=== PATIENT | female | born 1995 | race Hispanic/Latino ===

== ENCOUNTER 2017-11-13 10:57 | Emergency (ER) | payer BC ==
--- NOTE | 2017-11-13 13:24 | RAD REPORT ---
EXAM DESCRIPTION: RAD - Foot Left 3 View - 11/13/2017 12:58 pm CLINICAL HISTORY: PAIN Swelling. COMPARISON: No comparisons FINDINGS: No fracture or dislocation seen. Small calcaneal spur.
[2017-11-13] MEDS ORDERED: LIDOCAINE 1% W/EPI 1:100,000 MDV 50 ML VIAL ONE (13:55)
--- NOTE | 2017-11-13 14:48 | ER ---
Nurse's Notes [facility] Name: Swetha Farr Age: 22 yrs Sex: Female : 1995 Arrival Date: 11/13/2017 Time: 11:01 Bed 10 Private MD: None, None Diagnosis: Pain in left foot Presentation: 11/13 11:26 Presenting complaint: Patient states: left foot swollen started Monday. Transition sv of care: patient was not received from another setting of care. Onset of symptoms was November 08, 2017. Care prior to arrival: None. 11:26 Method Of Arrival: Ambulatory sv 11:26 Acuity: SAQIB 4 sv 15:04 Risk Assessment: Do you want to hurt yourself or someone else? Patient reports no rv desire to harm self or others. Initial Sepsis Screen: Does the patient meet any 2 criteria? No. Patient's initial sepsis screen is negative. Does the patient have a suspected source of infection? No. Patient's initial sepsis screen is negative. Historical: - Allergies: 11:27 No Known Allergies; sv - Home Meds: 11:27 None [Active]; sv - PMHx: 11:27 High Cholesterol; sv - PSHx: 11:27 None; sv - Immunization history:: Adult Immunizations up to date. - Social history:: Smoking status: Patient uses tobacco products, denies chronic smoking, but will smoke occasionally. - Ebola Screening: : No symptoms or risks identified at this time. Screenin:23 Abuse screen: Denies threats or abuse. Nutritional screening: No deficits noted. aa5 Tuberculosis screening: No symptoms or risk factors identified. Fall Risk None identified. Assessment: 12:20 General: Appears comfortable, Behavior is calm, cooperative. Pain: Complains of pain in aa5 lateral side of left foot Pain does not radiate. Pain currently is 5 out of 10 on a pain scale. Quality of pain is described as tender, throbbing, Pain began approximately 5 days ago Is continuous, Aggravated by weight bearing. Neuro: Level of Consciousness is awake, alert, obeys commands, Oriented to person, place, time, situation. Cardiovascular: No deficits noted. Respiratory: Airway is patent Respiratory effort is even, unlabored, Respiratory pattern is regular, symmetrical. GI: No signs and/or symptoms were reported involving the gastrointestinal system. : No signs and/or symptoms were reported regarding the genitourinary system. EENT: No signs and/or symptoms were reported regarding the EENT system. Derm: Skin is pink, warm \\T\\ dry. Pt states "I have a red spot on the side of my foot and it's been there since Monday". No redness noted to left foot, small puncture wound noted to lateral aspect of left foot. Pt states "maybe I stepped on something and didn't notice". Musculoskeletal: Range of motion: intact in all extremities. Vital Signs: 11:28 BP 144 / 82; Pulse 82; Resp 18; Temp 98.2; Pulse Ox 98% ; Weight 104.33 kg; Height 5 sv ft. 3 in. (160.02 cm); 11:28 Body Mass Index 40.74 (104.33 kg, 160.02 cm) sv ED Course: 11:01 Patient arrived in ED. sb2 11:01 None, None is Private Physician. sb2 11:11 Annika Rincon, BRITNEY is Primary Nurse. jl7 11:11 Sherwin Carrillo PA is PHCP. cp 11:11 Jose L Miguel MD is Attending Physician. cp 11:11 Patient's name was called from ER lobby. No response. sv 11:27 Triage completed. sv 11:29 Arm band placed on right wrist. Patient placed in waiting room, Patient notified of sv wait time. 12:20 Patient has correct armband on for positive identification. Call light in reach. aa5 12:20 Patient placed in an exam room. aa5 12:21 Sherwin Carrillo PA is PHCP. cp 12:21 Jose L Miguel MD is Attending Physician. cp 12:55 X-ray completed. Portable x-ray completed in exam room. Patient tolerated procedure jb2 well. 12:57 XRAY Foot LEFT 3 View In Process Unspecified. EDMS 14:47 Gerald Spencer DPM is Referral Physician. cp 15:03 Assist provider with I \\T\\ D: of an abscess on left. Patient did not have IV access rv during this emergency room visit. Administered Medications: No medications were administered Outcome: 14:48 Discharge ordered by MD. cp 15:03 Discharged to home ambulatory. rv 15:03 Condition: improved 15:03 Discharge instructions given to patient, Instructed on discharge instructions, follow up and referral plans. medication usage, wound care. 15:05 Patient left the ED. rv Signatures: Dispatcher [employer] EDCeline Park, RN RN Gerald Anders2 Marissa Nam RN RN aa5 Sherwin Carrillo PA PA cp Leal, Jahala RN RN jl7 Afshan Cordero sb2 Sean Goetz RN RN rv Corrections: (The following items were deleted from the chart) 11:29 11:28 Pulse 82bpm; Resp 18bpm; Pulse Ox 98%; Temp 98.2F; 104.33 kg; Height 5 ft. 3 in.; sv BMI: 40.7; sv
--- NOTE | 2017-11-13 14:48 | EDPHYS ---
Physician Documentation [facility] Name: Swetha Farr Age: 22 yrs Sex: Female : 1995 Arrival Date: 11/13/2017 Time: 11:01 Bed 10 Private MD: None, None ED Physician Jose L Miguel HPI: 11/13 12:30 This 22 yrs old Female presents to ER via Ambulatory with complaints of foot cp pain. 12:30 The patient presents with pain, that is acute, swelling, tenderness. The complaints cp affect the left foot. Context: resulted from an unknown cause, the patient can fully bear weight, the patient is able to ambulate, with mild difficulty. Onset: The symptoms/episode began/occurred last week. 12:30 Associated signs and symptoms: Pertinent positives: swelling, Pertinent negatives: calf cp tenderness, fever, weakness. Severity of symptoms: in the emergency department the symptoms are unchanged, despite home interventions. Historical: - Allergies: 11:27 No Known Allergies; sv - Home Meds: 11:27 None [Active]; sv - PMHx: 11:27 High Cholesterol; sv - PSHx: 11:27 None; sv - Immunization history:: Adult Immunizations up to date. - Social history:: Smoking status: Patient uses tobacco products, denies chronic smoking, but will smoke occasionally. - Ebola Screening: : No symptoms or risks identified at this time. ROS: 12:35 Constitutional: Negative for fever. cp 12:35 Eyes: Negative for injury, pain, redness, and discharge. cp 12:35 ENT: Negative for ear pain, sore throat, difficulty swallowing, difficulty handling secretions. 12:35 Neck: Negative for pain with movement, pain at rest, stiffness. 12:35 Cardiovascular: Negative for chest pain, edema, palpitations. 12:35 Respiratory: Negative for cough, shortness of breath, wheezing. 12:35 Abdomen/GI: Negative for abdominal pain, nausea, vomiting, and diarrhea. 12:35 Back: Negative for pain at rest, pain with movement, radiated pain. 12:35 MS/extremity: Positive for pain, swelling, tenderness, of the lateral side of left foot, Negative for deformity, erythema, paresthesias. 12:35 Skin: Negative for cellulitis, rash. 12:35 Neuro: Negative for altered mental status, headache. 12:35 All other systems are negative. Exam: 12:42 Head/Face: Normocephalic, atraumatic. cp 12:42 Constitutional: The patient appears in no acute distress, alert, awake, non-toxic, well developed, well nourished. 12:42 Eyes: Periorbital structures: appear normal, Conjunctiva: normal, no exudate, no cp injection, Lids and lashes: appear normal, bilaterally. 12:42 ENT: External ear(s): are unremarkable, Nose: is normal, Mouth: is normal, Posterior pharynx: is normal, airway is patent, no erythema, no exudate, no pooling of secretions. 12:42 Chest/axilla: Inspection: normal, Palpation: is normal, no crepitus, no tenderness. 12:42 Cardiovascular: Rate: normal, Rhythm: regular. 12:42 Respiratory: the patient does not display signs of respiratory distress, Respirations: Breath sounds: are clear throughout. 12:42 Abdomen/GI: Exam negative for discomfort, distension, guarding, Inspection: abdomen appears normal. 12:42 Musculoskeletal/extremity: Extremities: grossly normal except: noted in the lateral side of left foot proximal to fifth toe: pain, tenderness, mild swelling, There is no evidence of Perfusion: the extremity is normally perfused throughout, Sensation intact. 12:42 Skin: cellulitis, is not appreciated, no rash present. Vital Signs: 11:28 BP 144 / 82; Pulse 82; Resp 18; Temp 98.2; Pulse Ox 98% ; Weight 104.33 kg; Height 5 sv ft. 3 in. (160.02 cm); 11:28 Body Mass Index 40.74 (104.33 kg, 160.02 cm) sv MDM: 12:22 Patient medically screened. cp 13:00 Differential diagnosis: fracture, sprain, gout, cellulitis. cp 14:45 Data reviewed: vital signs, nurses notes, radiologic studies, plain films. cp 14:45 Test interpretation: by ED physician or midlevel provider: plain radiologic studies. cp Counseling: I had a detailed discussion with the patient and/or guardian regarding: the historical points, exam findings, and any diagnostic results supporting the discharge/admit diagnosis, radiology results, the need for outpatient follow up, a family practitioner, to return to the emergency department if symptoms worsen or persist or if there are any questions or concerns that arise at home. 11/13 12:26 Order name: XRAY Foot LEFT 3 View; Complete Time: 13:27 cp 11/13 13:27 Interpretation: Reviewed report. cp 11/13 13:40 Order name: I\T\D Setup; Complete Time: 14:19 cp Administered Medications: No medications were administered Disposition: 15:27 Co-signature as Attending Physician, Jose L iMguel MD I agree with the assessment and kdr plan of care. Disposition: 11/13/17 14:48 Discharged to Home. Impression: Pain in left foot. - Condition is Stable. - Discharge Instructions: Musculoskeletal Pain. - Prescriptions for Naprosyn 500 mg Oral Tablet - take 1 tablet by ORAL route 2 times per day take with food; 20 tablet. - Medication Reconciliation Form, Thank You Letter, Antibiotic Education, Prescription Opioid Use form. - Follow up: Gerald Spencer DPM; When: 5 - 6 days; Reason: if pain continues. - Problem is new. - Symptoms have improved. Signatures: Dispatcher [employer] Celine Ace, RN RN Jose L Miguel MD MD [facility] Sherwin Carrillo, PAMELA PA cp Sean Goetz, RN RN rv Corrections: (The following items were deleted from the chart) 15:05 14:48 11/13/2017 14:48 Discharged to Home. Impression: Pain in left foot. Condition is rv Stable. Forms are Medication Reconciliation Form, Thank You Letter, Antibiotic Education, Prescription Opioid Use. Follow up: Gerald Spencer; When: 5 - 6 days; Reason: if pain continues. Problem is new. Symptoms have improved. cp 11/14 08:37 11/13 12:27 This 22 yrs old Female presents to ER via Ambulatory with cp complaints of Abscess. cp
== END 2017-11-13 15:05 | disposition home or self-care (01) ==
LOC: ER 10:57
DX: M79.672 Pain in left foot (principal); M77.32 Calcaneal spur, left foot; Z72.0 Tobacco use
CPT/HCPCS: 99283

== ENCOUNTER 2020-08-08 07:58 | Emergency (ER) | payer OTHER, BC ==
--- OUTSIDE RECORDS SUMMARY | 2020-08-08 08:01 | XMS REPORT | Continuity of Care Document ---
:1995 Author Organization [facility] t Address [address] [place] [address] Care Team Providers Name Role Phone Lab, Fam Pob I Attending Clinician Unavailable Doctor Unassigned, Name Attending Clinician Unavailable Problems This patient has no known problems. Allergies, Adverse Reactions, Alerts This patient has no known allergies or adverse reactions. Medications This patient has no known medications. Procedures This patient has no known procedures. Encounters Start End Encounter Admission Attending Care Care Encounter Source Date/Time Date/Time Type Type Clinicians Facility Department ID 2020-06-08 2020-06-08 Laboratory Lab, [facility] [id number] 13:17:24 13:37:24 Only Fam Pob I Health [id number] [place] [id number] [facility] [id number] [address] 2020-06-08 2020-06-08 Letter Doctor MARCUS [id number] 00:00:00 00:00:00 (Out) UnassignedNAINA [id number] [place] [facility] [phone] [id number] Results This patient has no known results.
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
[2020-08-08 16:28] VITALS: BP 118/89; TEMP 98.5; O2SAT 100
== END 2020-08-08 08:45 | disposition home or self-care (01) ==
LOC: ER 07:58
DX: T23.161A Burn of first degree of back of right hand, initial encounter (principal); T23.162A Burn of first degree of back of left hand, initial encounter; X19.XXXA Contact with other heat and hot substances, initial encounter; F41.9 Anxiety disorder, unspecified
CPT/HCPCS: 99282